=== PATIENT | male | born 1980 | race African-American/Black ===

== ENCOUNTER 2016-12-22 16:29 | Emergency (ER) | payer MEDICAID ==
--- NOTE | 2016-12-22 17:31 | EDPHY ---
H & P Smoking Status: Current every day smoker Time Seen by Provider: 12/22/16 17:21 HPI/ROS: CHIEF COMPLAINT: Paranoia HISTORY OF PRESENT ILLNESS: Patient is a history of using methamphetamine in the past. He denies using it except for 3 months ago to me. He presents saying for the last 3 months he feels like "somebody wants to kill me "and he keeps saying "the same 5 guys each time ". He says last and he was at the [employer] station and happen again. Patient presents with paranoia. He thinks he is being chased and wonders if he is hallucinating. No recent head injury. No double vision. No suicidal or homicidal ideation. REVIEW OF SYSTEMS: Eye: no change in vision ENT: no sore throat Cardiac: no chest pain or syncope Pulmonary: no cough or SOB Abdomen: no vomiting, diarrhea, abdominal pain Musculoskeletal: no back pain Skin: no rash Neuro: no headache Constitutional: no fever : no urinary symptoms A comprehensive 10 point review of systems is otherwise negative aside from elements mentioned in the history of present illness. PAST MEDICAL HISTORY: Arm fracture as a kid, hypertension, appendectomy. Social history: Tobacco user, denies alcohol, methamphetamine as in HPI. General Appearance: Alert and conversant, cooperative. Eyes: No scleral icterus. ENT, Mouth: Normal mucous membranes. Respiratory: Normal respiratory effort, breath sounds equal, lungs are clear to auscultation. Cardiovascular: Regular rate and rhythm. Gastrointestinal: Abdomen is soft and non tender. Neurological: Alert and oriented x3. Normally conversant. Face symmetric, normal movement and sensation in all extremities. Not tremulous. Skin: Warm and dry, no rashes. Musculoskeletal: No peripheral edema and no joint swelling. Psychiatric: Not agitated. Emergency Department course/MDM: Plan for CBC chemistry and urine tox. He is voluntary. 2139: Signed out to [facility], urine tox pending. (Anoop Zavala) Constitutional: Initial Vital Signs Temperature (C) 37 C 12/22/16 16:38 Heart Rate 89 12/22/16 16:38 Respiratory Rate 20 12/22/16 16:38 Blood Pressure 134/83 H 12/22/16 16:38 O2 Sat (%) 97 12/22/16 16:38 O2 Delivery Mode Room Air Allergies/Adverse Reactions: No Known Allergies Allergy (Unverified 12/22/16 16:37) Home Medications: Medication Instructions Recorded NK [No Known Home Meds] 12/22/16 Medical Decision Making ED Course/Re-evaluation: 0643: No acute events overnight patient has been sleeping. Patient requesting to speak to mental health evaluation for paranoia. He is drug positive for methamphetamine cocaine. He is not on M1 hold. Patient signed over to Dr. Lindsey at 7:00 a.m. shift change. Patient pending mental health evaluation. ( Zuhair Ashraf) 700: Patient is signed out to me at change of shift. She is awaiting placement 10 30: EPS completed their evaluation. They felt the patient is appropriate to go to meth detox. The patient is in agreement. He will be discharged from the emergency department 1134 detox. (Eugenia Lindsey) Differential Diagnosis: My differential includes but is not limited to anxiety, depression, psychosis, drug abuse, alcohol abuse, withdrawal (Eugenia Lindsey) - Data Points Laboratory Results: Laboratory Results 12/22/16 17:15 12/22/16 17:15 Departure - Departure Disposition: Home, Routine, Self-Care Clinical Impression: Paranoia, Methamphetamine abuse Condition: Good Instructions: Methamphetamine Abuse (ED) Additional Instructions: Return with worsening symptoms or any other concerns. Referrals: [facility],. [Clinic] - As per Instructions
[2016-12-22 17:33] LABS: % IMMATURE GRANULYOCYTES 0.2 % (0.0-1.1); ABSOLUTE IMMATURE GRANULOCYTES 0.02 10^3/uL (0.00-0.10); ADD DIFF? NO; ADD MORPH? NO; ADD SCAN? NO; ATYPICAL LYMPHOCYTE FLAG 10 (0-99); FRAGMENT RBC FLAG 0 (0-99); HEMATOCRIT 42.2 % (40.0-51.0); HEMOGLOBIN 14.2 g/dL (13.7-17.5); LEFT SHIFT FLG 0 (0-99); LIPEMIA HEMOLYSIS FLAG 80 (0-99); MEAN CELL HEMOGLOBIN 26.9 pg (27.9-34.1); MEAN CELL HEMOGLOBIN CONCENTR. 33.6 g/dL (32.4-36.7); MEAN CELL VOLUME 79.9 fL (81.5-99.8); MEAN PLATELET VOLUME 8.9 fL (8.7-11.7); PLATELET CLUMPS FLAG 0 (0-99); PLATELET COUNT 284 10^3/uL (150-400); RED BLOOD CELL COUNT 5.28 10^6/uL (4.40-6.38); RED CELL DISTRIBUTION WIDTH 14.4 % (11.5-15.2)
[2016-12-22 17:48] LABS: ANION GAP 10 mEq/L (8-16); CALCIUM 9.4 mg/dL (8.5-10.4); CARBON DIOXIDE 29 mEq/l (22-31); CHLORIDE 105 mEq/L (97-110); ETHANOL SERUM < 10 mg/dL (0-10); GLOMERULAR FILTRATION RATE > 60; GLUCOSE 102 mg/dL (70-100); POTASSIUM 3.7 mEq/L (3.5-5.2); SODIUM 144 mEq/L (134-144)
[2016-12-23 04:13] VITALS: RESP 16; TEMP 98.1
[2016-12-23 08:18] VITALS: O2SAT 96
[2016-12-23 10:50] VITALS: BP 160/95; PULSE 85
[2016-12-23] MEDS ORDERED: OLANZapine DISINTEGR 5 MG TAB PO ONE (10:59)
[2016-12-23] MEDS ORDERED: LORazepam 1 MG TAB PO ONE (10:59)
== END 2016-12-23 11:17 | disposition home or self-care (01) ==
LOC: EEVIPCON 16:29
DX: F22 Delusional disorders (principal); F15.10 Other stimulant abuse, uncomplicated; F17.200 Nicotine dependence, unspecified, uncomplicated; I10 Essential (primary) hypertension
CPT/HCPCS: 80305; G0480